=== PATIENT | male | born 1950 | race American Indian/Alaskan Native ===

== ENCOUNTER 2023-06-05 16:22 | Observation (INO) | payer OTHER ==
[2023-06-05 18:36] LABS: BASO % 0.7 % (0-2.0); EOS % 1.3 % (0-4.5); HEMOGLOBIN 14.4 GM/dL (11.7-16.9); MCH 30.8 pg (25.7-33.7); MCHC 35.2 g/dl (32.0-35.9); MEAN CELL VOLUME 87.5 fl (80-96); MEAN PLT VOLUME 8.8 fl (7.5-11.1); MONO % 5.5 % (3.8-10.2); NEUT % 61.5 % (42.8-82.8); PLATELET COUNT 425 10^3/uL (134-434); RBC 4.68 M/mm3 (4.00-5.60); RDW 14.3 % (11.9-15.9); WHITE BLOOD COUNT 10.6 K/mm3 (4.0-10.0)
[2023-06-05 18:44] LABS: INR 0.97 (0.83-1.09); PROTHROMBIN TIME (PATIENT) 11.2 SEC (9.7-13.0)
[2023-06-05 18:47] LABS: ACTIVATED PTT 32.7 SECONDS (25.2-36.5)
[2023-06-05 19:03] LABS: POTASSIUM 5.5 mmol/L (3.5-5.1)
[2023-06-05 19:05] LABS: CALCIUM 9.5 mg/dL (8.5-10.1)
[2023-06-05 19:06] LABS: ALBUMIN 3.9 g/dl (3.4-5.0); BLOOD UREA NITROGEN 20.8 mg/dL (7-18)
[2023-06-05 19:10] LABS: BILIRUBIN,TOTAL 0.4 mg/dL (0.2-1)
[2023-06-05 19:11] LABS: TOT PROT 8.1 g/dl (6.4-8.2)
[2023-06-05 19:44] LABS: CREATININE 1.1 mg/dL (0.55-1.3)
[2023-06-05] MEDS ORDERED: ACETAMINOPHEN INJECTION 100 ML IVPB ONE (20:34)
[2023-06-05] MEDS: ACETAMINOPHEN 1000 MG/100 ML BAG IVPB ONE ×2 (20:38→20:57)
[2023-06-05] MEDS ORDERED: CLOPIDOGREL BISULFATE 75 MG TABLET (FP) ONE (21:23)
[2023-06-05] MEDS ORDERED: ASPIRIN 81 MG CHEWABLE TABLETS ONE (21:23)
[2023-06-05] MEDS: CLOPIDOGREL BISULFATE 75 MG TABLET (FP) PO ONE (21:28)
[2023-06-05] MEDS: ASPIRIN 81 MG CHEWABLE TABLETS PO ONE (21:28)
[2023-06-05] MEDS ORDERED: DOCUSATE SODIUM 100 MG CAPSULE (FP) PO PRN (22:15)
[2023-06-06] MEDS ORDERED: ACETAMINOPHEN 1000 MG/100 ML BAG IVPB PRN (02:00)
[2023-06-06 02:10] VITALS: BMI 20.1
[2023-06-06] MEDS: INSULIN ASPART SLIDING SCALE (NOVOLOG) 1 VIAL SQ SCH ×2 (06:39→12:09)
[2023-06-06 07:37] LABS: BASO % 0.5 % (0-2.0); EOS % 1.8 % (0-4.5); HEMATOCRIT 37.9 % (35.4-49); HEMOGLOBIN 12.9 GM/dL (11.7-16.9); LYMPH % 27.3 % (8-40); MCH 29.8 pg (25.7-33.7); MCHC 33.9 g/dl (32.0-35.9); MEAN CELL VOLUME 87.7 fl (80-96); MEAN PLT VOLUME 8.7 fl (7.5-11.1); MONO % 7.2 % (3.8-10.2); NEUT % 63.2 % (42.8-82.8); PLATELET COUNT 388 10^3/uL (134-434); RBC 4.33 M/mm3 (4.00-5.60); WHITE BLOOD COUNT 9.7 K/mm3 (4.0-10.0)
[2023-06-06 07:43] LABS: POTASSIUM 3.9 mmol/L (3.5-5.1)
[2023-06-06 07:45] LABS: BLOOD UREA NITROGEN 20.8 mg/dL (7-18); CALCIUM 8.6 mg/dL (8.5-10.1)
[2023-06-06 07:46] LABS: MAGNESIUM 1.9 mg/dL (1.8-2.4)
[2023-06-06 07:48] LABS: PHOSPHOROUS 3.2 mg/dL (2.5-4.9)
[2023-06-06 07:49] LABS: CREATININE 1.1 mg/dL (0.55-1.3)
[2023-06-06 08:24] LABS: CHOLESTEROL 190 mg/dL (50-200)
[2023-06-06 08:25] LABS: LDL CHOLESTEROL (ONLY SJRH) 114 mg/dL (5-100)
[2023-06-06 08:27] LABS: HDL CHOLESTEROL 63 mg/dL (40-60)
[2023-06-06] MEDS: ASPIRIN 325 MG ENTERIC COATED TABLET (FP) PO SCH (09:51)
[2023-06-06] MEDS: NICOTINE 14 MG/24 HOURS TOPICAL PATCH TD SCH (09:53)
[2023-06-06] MEDS: metoPROLOL SUCCINATE 25 MG TAB.SR.24H (FP) PO SCH (13:56)
[2023-06-06] MEDS: ACETAMINOPHEN 500 MG TABLET (FP) PO ONE (13:56)
[2023-06-06] MEDS: ATORVASTATIN CA 40 MG TABLET (FP) PO ONE (13:57)
[2023-06-06] MEDS: INSULIN (LEVEMIR) 100 UNITS/ML UNITS SQ SCH (18:17)
[2023-06-07] MEDS ORDERED: ACETAMINOPHEN 325 MG TABLET (FP) PO PRN ×2 (02:00→11:15)
[2023-06-07 07:25] LABS: HEMATOCRIT 37.2 % (35.4-49); HEMOGLOBIN 12.8 GM/dL (11.7-16.9); MCH 30.3 pg (25.7-33.7); MCHC 34.5 g/dl (32.0-35.9); MEAN PLT VOLUME 8.6 fl (7.5-11.1); PLATELET COUNT 386 10^3/uL (134-434); RBC 4.22 M/mm3 (4.00-5.60); WHITE BLOOD COUNT 8.6 K/mm3 (4.0-10.0)
[2023-06-07 07:43] LABS: POTASSIUM 4.5 mmol/L (3.5-5.1)
[2023-06-07 07:45] LABS: CALCIUM 9.1 mg/dL (8.5-10.1)
[2023-06-07 07:46] LABS: ALBUMIN 3.1 g/dl (3.4-5.0); BLOOD UREA NITROGEN 28.6 mg/dL (7-18); MAGNESIUM 2.2 mg/dL (1.8-2.4)
[2023-06-07 07:49] LABS: CREATININE 1.2 mg/dL (0.55-1.3)
[2023-06-07 07:50] LABS: TOT PROT 6.3 g/dl (6.4-8.2)
[2023-06-07 07:51] LABS: BILIRUBIN,TOTAL 0.3 mg/dL (0.2-1)
[2023-06-07] MEDS ORDERED: INSULIN (NOVOLOG) ASPART 100 UNITS/ML 10ML VIAL SQ SCH (11:00)
[2023-06-07] MEDS: INSULIN (LEVEMIR) 100 UNITS/ML UNITS SQ SCH (11:26)
[2023-06-07] MEDS: INSULIN ASPART SLIDING SCALE (NOVOLOG) 1 VIAL SQ SCH (11:27)
[2023-06-07] MEDS: INSULIN (NOVOLOG) ASPART 100 UNITS/ML 10ML VIAL SQ SCH (11:30)
[2023-06-07] MEDS: FLUTICASONE PROP 0.05% 16 GM NASAL SPRAY NS SCH (14:48)
[2023-06-07] MEDS: ATORVASTATIN CA 40 MG TABLET (FP) PO SCH (21:34)
[2023-06-07] MEDS: IBUPROFEN 400 MG TABLET (FP) PO PRN (21:34)
[2023-06-08] MEDS: INSULIN (NOVOLOG) ASPART 100 UNITS/ML 10ML VIAL SQ SCH (06:49)
[2023-06-08] MEDS ORDERED: INSULIN ASPART SLIDING SCALE (NOVOLOG) 1 VIAL SQ ONE (07:06)
[2023-06-08] MEDS ORDERED: INSULIN (LEVEMIR) 100 UNITS/ML UNITS SQ ONE (07:06)
[2023-06-08 08:28] LABS: HEMATOCRIT 40.2 % (35.4-49); HEMOGLOBIN 13.4 GM/dL (11.7-16.9); MCH 29.8 pg (25.7-33.7); MCHC 33.2 g/dl (32.0-35.9); MEAN CELL VOLUME 89.8 fl (80-96); PLATELET COUNT 387 10^3/uL (134-434); RBC 4.48 M/mm3 (4.00-5.60); RDW 14.2 % (11.9-15.9); WHITE BLOOD COUNT 9.8 K/mm3 (4.0-10.0)
[2023-06-08 08:40] LABS: POTASSIUM 4.5 mmol/L (3.5-5.1)
[2023-06-08 08:42] LABS: ALBUMIN 3.6 g/dl (3.4-5.0); BLOOD UREA NITROGEN 36.1 mg/dL (7-18); CALCIUM 9.1 mg/dL (8.5-10.1); MAGNESIUM 2.1 mg/dL (1.8-2.4)
[2023-06-08 08:45] LABS: CREATININE 1.3 mg/dL (0.55-1.3)
[2023-06-08 08:47] LABS: BILIRUBIN,TOTAL 0.3 mg/dL (0.2-1); TOT PROT 7.2 g/dl (6.4-8.2)
[2023-06-08] MEDS: metoPROLOL SUCCINATE 25 MG TAB.SR.24H (FP) PO SCH (10:20)
[2023-06-08] MEDS: glipiZIDE 5 MG TABLET (FP) PO SCH (20:52)
[2023-06-09] MEDS: metFORMIN HCL 500 MG TABLET (FP) PO SCH (06:33)
[2023-06-09 06:43] VITALS: BP 176/79; PULSE 76; RESP 16; TEMP 97.8
[2023-06-09 08:08] LABS: HEMATOCRIT 38.5 % (35.4-49); HEMOGLOBIN 12.9 GM/dL (11.7-16.9); MCHC 33.5 g/dl (32.0-35.9); MEAN CELL VOLUME 89.6 fl (80-96); PLATELET COUNT 415 10^3/uL (134-434); RDW 14.4 % (11.9-15.9); WHITE BLOOD COUNT 11.2 K/mm3 (4.0-10.0)
[2023-06-09 08:37] LABS: CALCIUM 9.4 mg/dL (8.5-10.1)
[2023-06-09 08:38] LABS: ALBUMIN 3.8 g/dl (3.4-5.0); BLOOD UREA NITROGEN 31.9 mg/dL (7-18); MAGNESIUM 2.2 mg/dL (1.8-2.4)
[2023-06-09 08:41] LABS: CREATININE 1.2 mg/dL (0.55-1.3)
[2023-06-09 08:43] LABS: BILIRUBIN,TOTAL 0.4 mg/dL (0.2-1); TOT PROT 7.4 g/dl (6.4-8.2)
[2023-06-09] MEDS: LOSARTAN POTASSIUM 50 MG TABLET PO SCH (11:32)
== END 2023-06-09 15:38 | disposition home or self-care (01) ==
LOC: JER 16:22 → JERBED 21:56 → J4S 06-06 00:03
PROVIDERS: ADMIT Internal Medicine; ATTEND Internal Medicine
PROC: 3E033NZ Introduction of Analgesics, Hypnotics, Sedatives into Peripheral Vein, Percutaneous Approach (ICD-10-PCS; principal; 2023-06-05)
PROC: 3E013VG Introduction of Insulin into Subcutaneous Tissue, Percutaneous Approach (ICD-10-PCS; 2023-06-05)
DX: H49.02 Third [oculomotor] nerve palsy, left eye (principal); G58.8 Other specified mononeuropathies; I10 Essential (primary) hypertension; E11.9 Type 2 diabetes mellitus without complications; F17.200 Nicotine dependence, unspecified, uncomplicated; E78.5 Hyperlipidemia, unspecified; F17.210 Nicotine dependence, cigarettes, uncomplicated; Z88.0 Allergy status to penicillin
CPT/HCPCS: 36415; 70450-TC; 70496-TC; 70498-TC; 70551-TC; 71045-TC-FY; 80048; 80053; 80061; 82962; 83036; 83735; 84100; 84439; 84443; 84484; 85025; 85027; 85610; 85651; 85730; 86140; 86850; 86900; 86901; 93005; 93010; 93880-TC; 96372; 96374; 97116-GP; 97161-GP; 99285-25; G0378; J0131

== ENCOUNTER 2023-12-17 14:57 | Inpatient (IN) | payer OTHER ==
[2023-12-17 17:26] LABS: BASO % 0.7 % (0-2.0); EOS % 1.8 % (0-4.5); HEMATOCRIT 38.7 % (35.4-49); HEMOGLOBIN 13.1 GM/dL (11.7-16.9); LYMPH % 22.9 % (8-40); MCH 29.9 pg (25.7-33.7); MCHC 33.9 g/dl (32.0-35.9); MEAN CELL VOLUME 88.3 fl (80-96); MEAN PLT VOLUME 8.3 fl (7.5-11.1); MONO % 6.6 % (3.8-10.2); PLATELET COUNT 428 10^3/uL (134-434); RBC 4.38 M/mm3 (4.00-5.60); RDW 14.9 % (11.9-15.9); WHITE BLOOD COUNT 10.2 K/mm3 (4.0-10.0)
[2023-12-17 17:37] LABS: POTASSIUM 4.7 mmol/L (3.5-5.1)
[2023-12-17 17:39] LABS: CALCIUM 10.6 mg/dL (8.5-10.1)
[2023-12-17 17:40] LABS: BLOOD UREA NITROGEN 32.9 mg/dL (7-18)
[2023-12-17 17:43] LABS: CREATININE 1.4 mg/dL (0.55-1.3)
[2023-12-17 17:45] LABS: BILIRUBIN,TOTAL 0.4 mg/dL (0.2-1)
[2023-12-17] MEDS: SODIUM CHLORIDE 0.9% 500 ML INFUS.BAG IV ONE (18:05)
[2023-12-17] MEDS ORDERED: CLINDAMYCIN 600MG PREMIX IVPB 600 MG/50 ML BAG IVPB ONE (19:21)
[2023-12-17] MEDS: CLINDAMYCIN 600MG PREMIX IVPB 600 MG/50 ML BAG IVPB ONE (19:28)
[2023-12-17] MEDS ORDERED: DOCUSATE SODIUM 100 MG CAPSULE (FP) PO PRN (22:25)
[2023-12-18] MEDS: CLINDAMYCIN 600MG PREMIX IVPB 600 MG/50 ML BAG IVPB SCH (01:54)
[2023-12-18] MEDS: SODIUM CHLORIDE 1,000 ML IV SCH (01:54)
[2023-12-18 03:26] VITALS: RESP 18; BMI 21.2
[2023-12-18] MEDS: ACETAMINOPHEN 325 MG TABLET (FP) PO PRN (05:19)
[2023-12-18] MEDS: INSULIN ASPART SLIDING SCALE (NOVOLOG) 1 VIAL SQ SCH ×2 (06:21→17:10)
[2023-12-18 08:49] LABS: BASO % 0.6 % (0-2.0); EOS % 2.1 % (0-4.5); HEMATOCRIT 35.6 % (35.4-49); LYMPH % 27.4 % (8-40); MCHC 33.6 g/dl (32.0-35.9); MEAN CELL VOLUME 89.3 fl (80-96); MEAN PLT VOLUME 8.4 fl (7.5-11.1); MONO % 6.9 % (3.8-10.2); PLATELET COUNT 380 10^3/uL (134-434); RBC 3.98 M/mm3 (4.00-5.60); RDW 14.9 % (11.9-15.9); WHITE BLOOD COUNT 9.1 K/mm3 (4.0-10.0)
[2023-12-18 09:13] LABS: POTASSIUM 4.2 mmol/L (3.5-5.1)
[2023-12-18 09:20] LABS: CALCIUM 9.7 mg/dL (8.5-10.1)
[2023-12-18] MEDS: NICOTINE 14 MG/24 HOURS TOPICAL PATCH TD SCH (09:20)
[2023-12-18 09:21] LABS: BLOOD UREA NITROGEN 28.7 mg/dL (7-18)
[2023-12-18 09:24] LABS: CREATININE 1.4 mg/dL (0.55-1.3); PHOSPHOROUS 3.4 mg/dL (2.5-4.9)
[2023-12-18 09:43] LABS: INR 0.93 (0.83-1.09); PROTHROMBIN TIME (PATIENT) 10.7 SEC (9.7-13.0)
[2023-12-18 09:46] LABS: ACTIVATED PTT 32.3 SECONDS (25.2-36.5)
[2023-12-18 10:44] LABS: MAGNESIUM 1.9 mg/dL (1.8-2.4)
[2023-12-18] MEDS: HEPARIN NA (PORCINE) 5,000 UNITS/ML 1ML VIAL SQ SCH (13:33)
[2023-12-18] MEDS: BACITRACIN ZINC 15 GM TUBE TOPICAL OINTMENT TP SCH (17:06)
[2023-12-18] MEDS: ATORVASTATIN CA 40 MG TABLET (FP) PO SCH (22:47)
[2023-12-18] MEDS: INSULIN (LEVEMIR) 100 UNITS/ML UNITS SQ SCH (22:48)
[2023-12-19 09:49] LABS: BASO % 0.3 % (0-2.0); EOS % 1.5 % (0-4.5); HEMATOCRIT 36.1 % (35.4-49); HEMOGLOBIN 12.4 GM/dL (11.7-16.9); LYMPH % 26.3 % (8-40); MCH 30.2 pg (25.7-33.7); MCHC 34.4 g/dl (32.0-35.9); MEAN CELL VOLUME 87.9 fl (80-96); MEAN PLT VOLUME 8.4 fl (7.5-11.1); MONO % 6.6 % (3.8-10.2); NEUT % 65.3 % (42.8-82.8); PLATELET COUNT 419 10^3/uL (134-434); WHITE BLOOD COUNT 12.1 K/mm3 (4.0-10.0)
[2023-12-19 10:27] LABS: POTASSIUM 4.2 mmol/L (3.5-5.1)
[2023-12-19 10:36] LABS: BLOOD UREA NITROGEN 30.3 mg/dL (7-18)
[2023-12-19 10:40] LABS: CALCIUM 9.5 mg/dL (8.5-10.1)
[2023-12-19 10:41] LABS: ALBUMIN 3.6 g/dl (3.4-5.0); MAGNESIUM 1.8 mg/dL (1.8-2.4)
[2023-12-19 10:44] LABS: CREATININE 1.5 mg/dL (0.55-1.3)
[2023-12-19 10:45] LABS: BILIRUBIN,TOTAL 0.4 mg/dL (0.2-1)
[2023-12-19 10:46] LABS: TOT PROT 7.3 g/dl (6.4-8.2)
[2023-12-20] MEDS: MELATONIN 5 MG TABLETS PO PRN (01:28)
[2023-12-20 10:13] LABS: BASO % 0.5 % (0-2.0); EOS % 2.8 % (0-4.5); HEMATOCRIT 34.2 % (35.4-49); HEMOGLOBIN 12.1 GM/dL (11.7-16.9); LYMPH % 22.7 % (8-40); MCHC 35.2 g/dl (32.0-35.9); MEAN CELL VOLUME 88.1 fl (80-96); MEAN PLT VOLUME 8.2 fl (7.5-11.1); MONO % 7.4 % (3.8-10.2); NEUT % 66.6 % (42.8-82.8); PLATELET COUNT 396 10^3/uL (134-434); RBC 3.89 M/mm3 (4.00-5.60); RDW 14.7 % (11.9-15.9); WHITE BLOOD COUNT 9.8 K/mm3 (4.0-10.0)
[2023-12-20 11:02] LABS: POTASSIUM 4.7 mmol/L (3.5-5.1)
[2023-12-20 11:09] LABS: ALBUMIN 3.2 g/dl (3.4-5.0); BLOOD UREA NITROGEN 27.8 mg/dL (7-18); CALCIUM 9.2 mg/dL (8.5-10.1); MAGNESIUM 2.1 mg/dL (1.8-2.4)
[2023-12-20 11:12] LABS: CREATININE 1.5 mg/dL (0.55-1.3)
[2023-12-20 11:13] LABS: BILIRUBIN,TOTAL 0.3 mg/dL (0.2-1); TOT PROT 6.6 g/dl (6.4-8.2)
[2023-12-20] MEDS: INSULIN (LEVEMIR) 100 UNITS/ML UNITS SQ SCH (12:14)
[2023-12-20 15:05] VITALS: BP 145/66; PULSE 85; TEMP 98.4
[2023-12-20] MEDS ORDERED: CLINDAMYCIN HCL 150 MG CAPSULE (FP) PO SCH (22:00)
== END 2023-12-20 18:56 | disposition home health service (06) | DRG 603 ==
LOC: JER 14:57 → JERBED 19:18 → J8W 12-18 00:56
PROVIDERS: ADMIT Internal Medicine; ATTEND Nurse Practitioner Family
PROC: 0HDNXZZ Extraction of Left Foot Skin, External Approach (ICD-10-PCS; principal; 2023-12-19)
DX: L03.116 Cellulitis of left lower limb (principal); E11.65 Type 2 diabetes mellitus with hyperglycemia; I10 Essential (primary) hypertension; E78.5 Hyperlipidemia, unspecified; L97.509 Non-pressure chronic ulcer of other part of unspecified foot with unspecified severity
CPT/HCPCS: 36415; 73610-TC-LT-FY; 73630-TC-LT; 80048; 80053; 82962; 83036; 83735; 84100; 85025; 85610; 85651; 85730; 86140; 93005; 93010; 93971-TC; 97116-GP; 97161-GP; 99285-25; J1644

== ENCOUNTER 2024-01-02 18:17 | Inpatient (IN) | payer OTHER ==
[2024-01-02 20:27] LABS: BASO % 0.7 % (0-2.0); EOS % 3.7 % (0-4.5); HEMATOCRIT 35.3 % (35.4-49); LYMPH % 19.5 % (8-40); MCH 30.4 pg (25.7-33.7); MEAN CELL VOLUME 89.4 fl (80-96); MEAN PLT VOLUME 7.8 fl (7.5-11.1); NEUT % 70.1 % (42.8-82.8); PLATELET COUNT 474 10^3/uL (134-434); RBC 3.95 M/mm3 (4.00-5.60); RDW 15.6 % (11.9-15.9); WHITE BLOOD COUNT 11.5 K/mm3 (4.0-10.0)
[2024-01-02 20:46] LABS: POTASSIUM 4.6 mmol/L (3.5-5.1)
[2024-01-02 20:48] LABS: CALCIUM 9.3 mg/dL (8.5-10.1)
[2024-01-02 20:49] LABS: ALBUMIN 3.8 g/dl (3.4-5.0); MAGNESIUM 2.3 mg/dL (1.8-2.4)
[2024-01-02 20:51] LABS: CREATININE 1.9 mg/dL (0.55-1.3)
[2024-01-02 20:52] LABS: PHOSPHOROUS 3.3 mg/dL (2.5-4.9)
[2024-01-02 20:53] LABS: BILIRUBIN,TOTAL 0.2 mg/dL (0.2-1); TOT PROT 7.6 g/dl (6.4-8.2)
[2024-01-02] MEDS ORDERED: VANCOMYCIN 1 GRAM (PRE-DOCKED) 1,000 MG/250 ML BAG IVPB ONE (21:45)
[2024-01-02] MEDS: VANCOMYCIN 1,000 MG in DEXTROSE 5%-WATER - 250 ML IVPB ONE (22:03)
[2024-01-02] MEDS ORDERED: DOCUSATE SODIUM 100 MG CAPSULE (FP) PO PRN (23:36)
[2024-01-02] MEDS ORDERED: ACETAMINOPHEN 325 MG TABLET (FP) PO PRN (23:36)
[2024-01-02] MEDS: LACTATED RINGERS SOLUTION 1000 ML INFUS.BAG IV ONE (23:48)
[2024-01-03] MEDS: SODIUM CHLORIDE 0.45% 1,000 ML IV SCH (00:16)
[2024-01-03] MEDS ORDERED: ACETAMINOPHEN 500 MG TABLET (FP) ONE (06:19)
[2024-01-03] MEDS: ACETAMINOPHEN 500 MG TABLET (FP) PO ONE (06:24)
[2024-01-03] MEDS ORDERED: VANCOMYCIN/WATER FOR INJ (PEG) 750 MG/150 ML BAG IVPB SCH ×2 (08:15→18:00)
[2024-01-03 09:41] LABS: BASO % 0.7 % (0-2.0); EOS % 4.6 % (0-4.5); HEMATOCRIT 34.3 % (35.4-49); HEMOGLOBIN 11.6 GM/dL (11.7-16.9); MCH 30.5 pg (25.7-33.7); MEAN CELL VOLUME 89.6 fl (80-96); MEAN PLT VOLUME 7.9 fl (7.5-11.1); MONO % 6.7 % (3.8-10.2); PLATELET COUNT 454 10^3/uL (134-434); RBC 3.82 M/mm3 (4.00-5.60)
[2024-01-03 09:45] LABS: INR 0.98 (0.83-1.09); PROTHROMBIN TIME (PATIENT) 11.3 SEC (9.7-13.0)
[2024-01-03 09:48] LABS: ACTIVATED PTT 33.8 SECONDS (25.2-36.5)
[2024-01-03 09:58] LABS: POTASSIUM 4.6 mmol/L (3.5-5.1)
[2024-01-03 10:03] LABS: CALCIUM 8.9 mg/dL (8.5-10.1)
[2024-01-03 10:06] LABS: CREATININE 1.3 mg/dL (0.55-1.3)
[2024-01-03] MEDS: INSULIN ASPART SLIDING SCALE (NOVOLOG) 1 VIAL SQ SCH (12:15)
[2024-01-03] MEDS: AZTREONAM 1 GM in DEXTROSE 5%-WATER - 50 ML IVPB SCH ×3 (12:21→18:56)
[2024-01-03] MEDS: HYDROCORTISONE 0.5% TOPICAL CREAM 30 GM TUBE TP SCH (12:22)
[2024-01-03 13:43] VITALS: BMI 21.3
[2024-01-03] MEDS: HEPARIN NA (PORCINE) 5,000 UNITS/ML 1ML VIAL SQ SCH (14:11)
[2024-01-03] MEDS: ATORVASTATIN CA 40 MG TABLET (FP) PO SCH (21:42)
[2024-01-03] MEDS ORDERED: VANCOMYCIN 750 MG in DEXTROSE 5%-WATER - 250 ML IVPB ONE (22:00)
[2024-01-04 08:43] LABS: HEMOGLOBIN 11.5 GM/dL (11.7-16.9); MCH 30.8 pg (25.7-33.7); MCHC 34.9 g/dl (32.0-35.9); MEAN CELL VOLUME 88.4 fl (80-96); MEAN PLT VOLUME 8.1 fl (7.5-11.1); PLATELET COUNT 438 10^3/uL (134-434); RBC 3.73 M/mm3 (4.00-5.60); RDW 14.7 % (11.9-15.9); WHITE BLOOD COUNT 7.7 K/mm3 (4.0-10.0)
[2024-01-04 08:59] LABS: POTASSIUM 4.2 mmol/L (3.5-5.1)
[2024-01-04 09:15] LABS: BLOOD UREA NITROGEN 29.2 mg/dL (7-18); CALCIUM 8.8 mg/dL (8.5-10.1); MAGNESIUM 2.2 mg/dL (1.8-2.4)
[2024-01-04 09:18] LABS: CREATININE 1.4 mg/dL (0.55-1.3); PHOSPHOROUS 2.9 mg/dL (2.5-4.9)
[2024-01-04] MEDS: MINERAL OIL/PET HY-PHL TOPICAL OINTMENT 454 GM JAR TP SCH (14:35)
[2024-01-04 15:16] VITALS: RESP 18
[2024-01-04] MEDS ORDERED: INSULIN ASPART SLIDING SCALE (NOVOLOG) 1 VIAL SQ ONE (17:30)
[2024-01-05 08:16] LABS: EOS % 5.7 % (0-4.5); HEMOGLOBIN 11.8 GM/dL (11.7-16.9); LYMPH % 28.5 % (8-40); MCH 29.9 pg (25.7-33.7); MCHC 32.9 g/dl (32.0-35.9); MEAN CELL VOLUME 90.7 fl (80-96); MEAN PLT VOLUME 8.2 fl (7.5-11.1); MONO % 6.8 % (3.8-10.2); PLATELET COUNT 456 10^3/uL (134-434); RBC 3.97 M/mm3 (4.00-5.60); RDW 14.8 % (11.9-15.9); WHITE BLOOD COUNT 8.7 K/mm3 (4.0-10.0)
[2024-01-05 08:26] LABS: POTASSIUM 4.8 mmol/L (3.5-5.1)
[2024-01-05 08:36] LABS: CALCIUM 8.8 mg/dL (8.5-10.1)
[2024-01-05 08:37] LABS: ALBUMIN 3.2 g/dl (3.4-5.0); BLOOD UREA NITROGEN 28.6 mg/dL (7-18); MAGNESIUM 2.3 mg/dL (1.8-2.4)
[2024-01-05 08:40] LABS: CREATININE 1.4 mg/dL (0.55-1.3)
[2024-01-05 08:41] LABS: BILIRUBIN,TOTAL 0.3 mg/dL (0.2-1); TOT PROT 6.7 g/dl (6.4-8.2)
[2024-01-05] MEDS: LOSARTAN POTASSIUM 50 MG TABLET PO SCH (10:43)
[2024-01-05 22:39] VITALS: TEMP 97.7
[2024-01-06] MEDS: LORazepam 1 MG TABLET PO PRN (00:39)
[2024-01-06 08:23] LABS: BASO % 0.8 % (0-2.0); HEMATOCRIT 34.5 % (35.4-49); HEMOGLOBIN 11.7 GM/dL (11.7-16.9); LYMPH % 26.4 % (8-40); MCH 30.6 pg (25.7-33.7); MCHC 33.9 g/dl (32.0-35.9); MEAN CELL VOLUME 90.4 fl (80-96); MEAN PLT VOLUME 8.1 fl (7.5-11.1); MONO % 6.4 % (3.8-10.2); NEUT % 62.4 % (42.8-82.8); PLATELET COUNT 483 10^3/uL (134-434); RBC 3.82 M/mm3 (4.00-5.60); RDW 14.9 % (11.9-15.9); WHITE BLOOD COUNT 9.6 K/mm3 (4.0-10.0)
[2024-01-06 08:29] LABS: POTASSIUM 4.6 mmol/L (3.5-5.1)
[2024-01-06 08:30] LABS: CALCIUM 8.9 mg/dL (8.5-10.1)
[2024-01-06 08:31] LABS: ALBUMIN 3.3 g/dl (3.4-5.0); BLOOD UREA NITROGEN 27.7 mg/dL (7-18); MAGNESIUM 2.2 mg/dL (1.8-2.4)
[2024-01-06 08:34] LABS: CREATININE 1.4 mg/dL (0.55-1.3)
[2024-01-06 08:36] LABS: BILIRUBIN,TOTAL 0.6 mg/dL (0.2-1); TOT PROT 6.8 g/dl (6.4-8.2)
[2024-01-06 15:46] VITALS: BP 136/63; PULSE 78
[2024-01-06] MEDS ORDERED: HALOPERIDOL LACTATE 5 MG/ML IM ONE (17:44)
== END 2024-01-06 17:28 | DRG 603 ==
LOC: JER 18:17 → JERBED 23:35 → J8W 01-03 07:01
PROVIDERS: ADMIT Internal Medicine; ATTEND Nurse Practitioner Acute Care
DX: L03.116 Cellulitis of left lower limb (principal); I11.0 Hypertensive heart disease with heart failure; I50.9 Heart failure, unspecified; L30.8 Other specified dermatitis; E11.65 Type 2 diabetes mellitus with hyperglycemia; I08.0 Rheumatic disorders of both mitral and aortic valves; E78.5 Hyperlipidemia, unspecified; F17.200 Nicotine dependence, unspecified, uncomplicated; D72.829 Elevated white blood cell count, unspecified; Z88.0 Allergy status to penicillin
CPT/HCPCS: 36415; 80048; 80053; 82962; 83735; 84100; 85025; 85027; 85610; 85730; 87070; 87075; 87186; 87205; 93306-TC; 93970-TC; 99285-25; J1644